=== PATIENT | male | born 1990 | race African-American/Black ===

== ENCOUNTER 2017-05-10 23:09 | Emergency (ER) | payer SELFPAY ==
[~2017-05-10] VITALS: Ht 182.9 cm; Wt 80.3 kg
[2017-05-10 23:11] VITALS: BP 130/74
[2017-05-11 00:22] LABS: HIV 1&2 ANTIBODY SCREEN Nonreactive (Nonreactive); HIV-1 p24 ANTIGEN Nonreactive (Nonreactive)
[2017-05-11 09:25] LABS: HEP B SURF. AB 557.7 mIU/mL (0.0-10.0)
[2017-05-11 10:02] LABS: HEPATITIS C VIRUS ANTIBODY Nonreactive (Nonreactive)
== END 2017-05-10 23:59 | disposition home or self-care (01) ==
LOC: ED 23:45
DX: Z20.6 Contact with and (suspected) exposure to human immunodeficiency virus [HIV] (principal)
CPT/HCPCS: 36415; 86703; 86705; 86706; 86803; 87340; 87899; 99284; G0435

== ENCOUNTER 2017-10-16 16:55 | Emergency (ER) | payer OTHER ==
[~2017-10-16] VITALS: Ht 182.9 cm; Wt 79.3 kg
[2017-10-16] MEDS ORDERED: IBUPROFEN 200 MG TABLET ONE (17:35)
[2017-10-16] MEDS ORDERED: IBUPROFEN 200 MG TABLET PO ONE (18:00)
[2017-10-16] MEDS ORDERED: BICILLIN-LA 1,200,000 UNITS/2 ML IM ONE (18:00)
[2017-10-16 18:25] VITALS: BP 126/71
== END 2017-10-16 18:27 | disposition home or self-care (01) ==
LOC: ED 18:08
DX: J02.0 Streptococcal pharyngitis (principal)
CPT/HCPCS: 96372; 99283; J0561